=== PATIENT | female | born 1970 | race Caucasian/White ===

== ENCOUNTER 2022-02-27 12:23 | Outpatient (CLI) | payer OTHER | END 2022-02-27 12:24 | disposition home or self-care (01) | LOC: BICMAMMO 12:23 | PROVIDERS: ATTEND Nurse Practitioner Family | DX: Z12.31 Encounter for screening mammogram for malignant neoplasm of breast (principal); Z91.89 Other specified personal risk factors, not elsewhere classified | CPT/HCPCS: 77063; 77067 ==

== ENCOUNTER 2022-03-06 13:19 | Outpatient (CLI) | payer OTHER ==
[2022-03-06 13:58] LABS: #Basophils 0.1 10x3/uL (0.0-0.2); #Eosinphils 0.2 10x3/uL (0.0-0.5); #Monocytes 0.7 10x3/uL (0.0-1.1); #Neutrophils 5.1 10x3/uL (1.5-8.4); %Basophils 1.1 % (0.0-2.0); %Eosinophils 2.6 % (0.0-6.0); %Lymphocytes 26.9 % (18.0-47.0); Hemoglobin 13.1 g/dL (12.0-15.5); Mean Corpuscular HGB CONC 33.4 g/dL (32.0-36.0); Mean Corpuscular Hemoglobin 29.3 pg (27.0-33.0); Mean Corpuscular Volume 87.7 fl (81.6-98.3); Mean Platelet Volume 9.3 fl (7.4-10.4); Platelet Count 319 10x3/uL (150-450); RBC Distribution Width 13.9 % (11.5-14.5); Red Blood Cell (RBC) Count 4.47 10x6/uL (3.90-5.03); White Blood Cell (WBC) Count 8.3 10x3/uL (3.5-10.5)
[2022-03-06 14:38] LABS: Anion Gap 12 mmol/L (10-20); BUN (Urea Nitrogen) 18 mg/dL (9.8-20.1); Calc. Creatinine Clearance 0 mL/min (70-130); Calcium 9.3 mg/dL (7.8-10.44); Carbon Dioxide 28 mmol/L (22-29); Chloride 102 mmol/L (98-107); Estimated GFR 73; Glucose 87 mg/dL (70-105); Potassium 4.4 mmol/L (3.5-5.1); Sodium 138 mmol/L (136-145)
== END 2022-03-06 13:20 | disposition home or self-care (01) ==
LOC: LABBT 13:19
PROVIDERS: ATTEND Surgery
DX: Z01.812 Encounter for preprocedural laboratory examination (principal); K43.9 Ventral hernia without obstruction or gangrene
CPT/HCPCS: 80048; 85025

== ENCOUNTER 2023-05-13 14:34 | Outpatient (CLI) | payer BC | END 2023-05-13 14:35 | disposition home or self-care (01) | LOC: BICMAMMO 14:34 | PROVIDERS: ATTEND Family Medicine | DX: N64.52 Nipple discharge (principal); N60.42 Mammary duct ectasia of left breast | CPT/HCPCS: 77066; G0279 ==

== ENCOUNTER 2023-10-06 07:56 | Outpatient (CLI) | payer BC | END 2023-10-06 07:57 | disposition home or self-care (01) | LOC: BICMRI 07:56 | PROVIDERS: ATTEND Orthopaedic Surgery | DX: M23.006 Cystic meniscus, unspecified meniscus, right knee (principal); M23.92 Unspecified internal derangement of left knee; S83.281A Other tear of lateral meniscus, current injury, right knee, initial encounter; M23.041 Cystic meniscus, anterior horn of lateral meniscus, right knee; M17.12 Unilateral primary osteoarthritis, left knee; M25.461 Effusion, right knee; M25.462 Effusion, left knee; M94.8X6 Other specified disorders of cartilage, lower leg ==

== ENCOUNTER 2023-11-02 09:18 | Outpatient (CLI) | payer BC ==
[2023-11-02 10:32] LABS: #Basophils 0.07 10x3/uL (0.0-0.2); #Monocytes 0.54 10x3/uL (0.0-1.1); #Neutrophils 4.05 10x3/uL (1.5-8.4); %Basophils 1.1 % (0.0-2.0); %Eosinophils 3.1 % (0.0-6.0); %Monocytes 8.3 % (0.0-10.0); %Neutrophils 62.3 % (40.0-75.0); Hematocrit 41.1 % (34.9-44.5); Hemoglobin 13.7 g/dL (12.0-15.5); Mean Corpuscular HGB CONC 33.3 g/dL (32.0-36.0); Mean Corpuscular Hemoglobin 29.9 pg (27.0-33.0); Mean Corpuscular Volume 89.7 fL (81.6-98.3); Mean Platelet Volume 9.2 fL (7.4-10.4); Platelet Count 327 10x3/uL (150-450); RBC Distribution Width 14.1 % (11.5-14.5); Red Blood Cell (RBC) Count 4.58 10x6/uL (3.90-5.03); White Blood Cell (WBC) Count 6.5 10x3/uL (3.5-10.5)
[2023-11-02 11:00] LABS: Anion Gap 15 mmol/L (10-20); BUN (Urea Nitrogen) 14 mg/dL (9.8-20.1); Calc. Creatinine Clearance 0 mL/min (70-130); Calcium 9.1 mg/dL (7.8-10.44); Carbon Dioxide 24 mmol/L (22-29); Chloride 106 mmol/L (98-107); Estimated GFR 100; Glucose 86 mg/dL (70-105); Potassium 4.8 mmol/L (3.5-5.1); Sodium 140 mmol/L (136-145)
== END 2023-11-02 09:19 | disposition home or self-care (01) ==
LOC: LABBT 09:18
PROVIDERS: ATTEND Orthopaedic Surgery
DX: Z01.818 Encounter for other preprocedural examination (principal); M23.92 Unspecified internal derangement of left knee; Z98.890 Other specified postprocedural states
CPT/HCPCS: 80048; 85025; 93005; 93010

== ENCOUNTER 2023-11-06 06:06 | Day surgery (SDC) | payer BC ==
[2023-11-02 09:53] VITALS: BMI 38.7
[2023-11-06] MEDS ORDERED: PROPOFOL 20 ML ONE (07:47)
[2023-11-06] MEDS ORDERED: Lidocaine 2% PF 5 ML VIAL ONE (07:48)
[2023-11-06] MEDS ORDERED: Bupivacaine PF 0.5% 30 ML VIAL ONE (07:49)
[2023-11-06] MEDS ORDERED: Lidocaine 1% PF 5 ML VIAL ONE (07:55)
[2023-11-06] MEDS ORDERED: fentaNYL 50 mcg/mL 1 mL Vial ONE ×3 (07:56→10:10)
[2023-11-06] MEDS ORDERED: Bupivacaine HCl 0.5%/Epinephrine 1:200,000/PF 30 ml Vial ONE (08:03)
[2023-11-06] MEDS ORDERED: Sodium Chloride 0.9% 100 ML ONE (08:33)
[2023-11-06] MEDS ORDERED: CEFAZOLIN 2 GM VIAL ONE (08:33)
[2023-11-06] MEDS ORDERED: Ondansetron PF 4 MG/2 ML Vial ONE (09:22)
[2023-11-06] MEDS ORDERED: Dexamethasone 20 MG/5 ML VIAL ONE (09:22)
[2023-11-06] MEDS ORDERED: HYDROcodone/Acetaminophen 5/325 mg Tablet ONE (10:59)
== END 2023-11-06 11:56 | disposition home or self-care (01) ==
LOC: SDC 06:06
PROVIDERS: ATTEND Orthopaedic Surgery
PROC: 0SBD4ZZ Excision of Left Knee Joint, Percutaneous Endoscopic Approach (ICD-10-PCS; principal; 2023-11-06)
PROC: 3E0T3BZ Introduction of Anesthetic Agent into Peripheral Nerves and Plexi, Percutaneous Approach (ICD-10-PCS; principal; 2023-11-06)
DX: S83.282A Other tear of lateral meniscus, current injury, left knee, initial encounter (principal); S83.242A Other tear of medial meniscus, current injury, left knee, initial encounter; M94.262 Chondromalacia, left knee; M25.762 Osteophyte, left knee; M25.862 Other specified joint disorders, left knee; K21.9 Gastro-esophageal reflux disease without esophagitis; Z88.8 Allergy status to other drugs, medicaments and biological substances; Z90.49 Acquired absence of other specified parts of digestive tract; Z90.710 Acquired absence of both cervix and uterus; Z79.899 Other long term (current) drug therapy; X58.XXXA Exposure to other specified factors, initial encounter
CPT/HCPCS: J0665; J1100; J2001; J2405; J2704; J3010; J3490

== ENCOUNTER 2024-03-21 15:51 | Outpatient (CLI) | payer BC ==
[2024-03-21 16:36] LABS: #Basophils 0.08 10x3/uL (0.0-0.2); %Basophils 1.1 % (0.0-1.0); %Eosinophils 4.5 % (0.0-10.0); %Monocytes 9.8 % (0.0-10.0); %Neutrophils 53.5 % (42.0-75.0); Hematocrit 35.8 % (36.0-47.0); Hemoglobin 11.8 g/dL (12.0-16.0); Mean Corpuscular Hemoglobin 29.5 pg (27.0-31.0); Mean Corpuscular Volume 89.5 fL (78.0-98.0); Mean Platelet Volume 9.5 fL (7.4-10.4); Platelet Count 316 10x3/uL (130-400); RBC Distribution Width 13.5 % (11.5-14.5)
[2024-03-21 18:31] LABS: Anion Gap 12 mmol/L (10-20); BUN (Urea Nitrogen) 13 mg/dL (9.8-20.1); Calc. Creatinine Clearance 0 mL/min (70-130); Calcium 8.6 mg/dL (7.8-10.44); Carbon Dioxide 22 mmol/L (22-29); Chloride 108 mmol/L (98-107); Estimated GFR 95; Glucose 110 mg/dL (70-105); Potassium 3.6 mmol/L (3.5-5.1); Sodium 138 mmol/L (136-145)
== END 2024-03-21 15:52 | disposition home or self-care (01) ==
LOC: LABBT 15:51
PROVIDERS: ATTEND Orthopaedic Surgery
DX: Z01.818 Encounter for other preprocedural examination (principal); S83.281A Other tear of lateral meniscus, current injury, right knee, initial encounter; M23.006 Cystic meniscus, unspecified meniscus, right knee
CPT/HCPCS: 71046; 80048; 85025; 93005; 93010

== ENCOUNTER 2024-03-25 05:39 | Day surgery (SDC) | payer BC ==
[2024-03-21 15:59] VITALS: BMI 39.9
[2024-03-25] MEDS ORDERED: PROPOFOL 20 ML ONE ×2 (07:03→07:24)
[2024-03-25] MEDS ORDERED: fentaNYL 50 mcg/mL 1 mL Vial ONE (07:03)
[2024-03-25] MEDS ORDERED: Bupivacaine PF 0.5% 30 ML VIAL ONE (07:03)
[2024-03-25] MEDS ORDERED: Lidocaine 2% PF 5 ML VIAL ONE (07:03)
[2024-03-25] MEDS ORDERED: fentaNYL PF 100 MCG/2 ML SYRINGE ONE (07:24)
[2024-03-25] MEDS ORDERED: CEFAZOLIN 1 GM VIAL ONE (07:38)
[2024-03-25] MEDS ORDERED: Dexamethasone 20 MG/5 ML VIAL ONE (07:49)
[2024-03-25] MEDS ORDERED: Ketorolac Tromethamine 30 MG (1 mL) VIAL ONE (07:49)
[2024-03-25] MEDS ORDERED: Ondansetron PF 4 MG/2 ML Vial ONE (07:49)
[2024-03-25] MEDS ORDERED: HYDROcodone/Acetaminophen 5/325 mg Tablet ONE (10:53)
== END 2024-03-25 11:28 | disposition home or self-care (01) ==
LOC: SDC 05:39
PROVIDERS: ATTEND Orthopaedic Surgery
PROC: 3E0T3BZ Introduction of Anesthetic Agent into Peripheral Nerves and Plexi, Percutaneous Approach (ICD-10-PCS; principal; 2024-03-25)
PROC: 0SBC4ZZ Excision of Right Knee Joint, Percutaneous Endoscopic Approach (ICD-10-PCS; principal; 2024-03-25)
DX: S83.281D Other tear of lateral meniscus, current injury, right knee, subsequent encounter (principal); M23.041 Cystic meniscus, anterior horn of lateral meniscus, right knee; M22.41 Chondromalacia patellae, right knee; M25.761 Osteophyte, right knee; K21.9 Gastro-esophageal reflux disease without esophagitis; Z90.710 Acquired absence of both cervix and uterus; Z90.49 Acquired absence of other specified parts of digestive tract; Z98.51 Tubal ligation status; Z98.890 Other specified postprocedural states; Z88.1 Allergy status to other antibiotic agents; Z88.8 Allergy status to other drugs, medicaments and biological substances; Z79.899 Other long term (current) drug therapy; X58.XXXD Exposure to other specified factors, subsequent encounter
CPT/HCPCS: J0665; J0690; J1100; J1885; J2405; J2704; J3010